=== PATIENT | female | born 1970 | race Two or more races ===

== ENCOUNTER 2018-05-01 18:25 | Inpatient (IN) | payer OTHER ==
[~2018-05-01] VITALS: Ht 152.4 cm; Wt 62.8 kg
[2018-05-01] MEDS ORDERED: SODIUM CHLORIDE 0.9% 1,000ML IVBOLUS ONE (19:30)
[2018-05-01] MEDS ORDERED: NICOTINE 21 MG/24 HR PATCH.TD24 TD ONE (19:30)
[2018-05-01 19:35] LABS: BASOPHILS # (AUTO) 0.05 x10^3/uL (0-0.1); BASOPHILS % (AUTO) 1 % (0-1); EOSINOPHILS # (AUTO) 0.34 x10^3/uL (0-0.4); EOSINOPHILS % (AUTO) 3 % (1-7); LYMPHOCYTES # (AUTO) 3.76 x10^3/uL (1-3.4); LYMPHOCYTES % (AUTO) 38 % (22-44); MD NO; MEAN CORPUSCULAR HEMOGLOBIN 30.3 pg (27.0-34.8); MEAN CORPUSCULAR HGB CONC 33.4 g/dL (32.4-35.8); MEAN CORPUSCULAR VOLUME 90.7 fL (80-100); MONOCYTES # (AUTO) 0.86 x10^3/uL (0.2-0.8); MONOCYTES % (AUTO) 9 % (2-9); NEUTROPHILS # (AUTO) 4.93 x10^3/uL (1.8-6.8); NEUTROPHILS % (AUTO) 50 % (42-75); PLATELET COUNT 257 x10^3/uL (130-400); RED BLOOD COUNT 4.95 x10^6/uL (3.82-5.3); RED CELL DISTRIBUTION WIDTH 14.1 % (9.6-15.2)
[2018-05-01 19:44] LABS: ALANINE AMINOTRANSFERASE 23 U/L (12-78); ALBUMIN 3.7 g/dL (3.4-5.0); ANION GAP 3 mmol/L (5-15); CALCIUM 8.5 mg/dL (8.5-10.1); CHLORIDE 110 mmol/L (98-107); CREATININE 0.77 mg/dL (0.55-1.02); SALICYLATE LEVEL 2.5 mg/dL (2.8-20.0)
[2018-05-01 19:49] LABS: ALKALINE PHOSPHATASE 86 U/L (45-117); BILIRUBIN,TOTAL 0.3 mg/dL (0.2-1.0); TOTAL PROTEIN 7.5 g/dL (6.4-8.2)
[2018-05-01 19:54] LABS: ACETAMINOPHEN < 2 mcg/mL (10-30)
[2018-05-01 20:21] LABS: ACETONE, SERUM Negative (Negative)
[2018-05-01 20:28] LABS: AMPHETAMINE SCREEN, URINE Negative (Negative); BARBITURATE SCREEN, URINE Negative (Negative); BENZODIAZEPINE SCREEN, URINE Negative (Negative); CANNABINOID SCREEN, URINE Negative (Negative); COCAINE SCREEN, URINE Negative (Negative); METHADONE SCREEN, URINE Negative (Negative); OPIATE SCREEN, URINE Negative (Negative)
[2018-05-01 23:43] LABS: ALANINE AMINOTRANSFERASE 26 U/L (12-78); ALBUMIN 3.3 g/dL (3.4-5.0); ANION GAP 6 mmol/L (5-15); CALCIUM 8.1 mg/dL (8.5-10.1); CHLORIDE 114 mmol/L (98-107); CREATININE 0.95 mg/dL (0.55-1.02)
[2018-05-01 23:45] LABS: ALKALINE PHOSPHATASE 86 U/L (45-117); BILIRUBIN,TOTAL 0.3 mg/dL (0.2-1.0); TOTAL PROTEIN 6.9 g/dL (6.4-8.2)
[2018-05-02] MEDS ORDERED: LORazepam 2 MG/ML, 1ML IVPush PRN (02:00)
[2018-05-02] MEDS: SODIUM CHLORIDE 0.9% 1,000 ML IV SCH ×3 (02:27→21:33)
[2018-05-02 03:03] LABS: ANION GAP 5 mmol/L (5-15); CALCIUM 7.8 mg/dL (8.5-10.1); CHLORIDE 116 mmol/L (98-107); CREATININE 0.95 mg/dL (0.55-1.02)
[2018-05-02 06:22] LABS: ANION GAP 4 mmol/L (5-15); CALCIUM 8.1 mg/dL (8.5-10.1); CHLORIDE 114 mmol/L (98-107); CREATININE 0.65 mg/dL (0.55-1.02)
[2018-05-02 08:21] VITALS: BP 123/74
[2018-05-02 11:24] LABS: ANION GAP 11 mmol/L (5-15); CALCIUM 8.3 mg/dL (8.5-10.1); CHLORIDE 108 mmol/L (98-107)
[2018-05-02 11:25] LABS: CREATININE 0.73 mg/dL (0.55-1.02)
[2018-05-02] MEDS ORDERED: MULT-725 PO (13:19)
[2018-05-02] MEDS ORDERED: MULT-658 PO (13:19)
[2018-05-02] MEDS ORDERED: SERT25TA PO (13:19)
[2018-05-02 14:41] LABS: ANION GAP 4 mmol/L (5-15); CHLORIDE 114 mmol/L (98-107); CREATININE 0.95 mg/dL (0.55-1.02)
[2018-05-02 16:22] VITALS: BP 91/55
[2018-05-02 19:55] VITALS: BP 85/59
[2018-05-02] MEDS ORDERED: LORazepam 1MG TABLET PO PRN (20:00)
[2018-05-02] MEDS ORDERED: FLUOXETINE HCL 20 MG CAPSULE PO SCH (20:00)
[2018-05-02] MEDS ORDERED: OLANZAPINE 2.5 MG TABLET PO SCH (20:00)
[2018-05-02] MEDS ORDERED: OLANZAPINE 5 MG TABLET ONE (22:20)
[2018-05-02] MEDS: LORazepam 2 MG/ML, 1ML IV PRN (22:33)
[2018-05-03 01:15] VITALS: BP 98/56
[2018-05-03] MEDS: LORazepam 2 MG/ML, 1ML IV PRN ×3 (07:26→20:02)
[2018-05-03 07:30] VITALS: BP 95/63
[2018-05-03 14:00] VITALS: BP 100/63
[2018-05-03] MEDS ORDERED: ACETAMINOPHEN 325 MG TABLET PO PRN (16:30)
[2018-05-03] MEDS ORDERED: FLUOXETINE HCL 20 MG CAPSULE PO SCH ×2 (20:00)
[2018-05-03] MEDS ORDERED: OLANZAPINE 2.5 MG TABLET PO SCH ×2 (20:00)
[2018-05-03 20:16] VITALS: BP 99/65
[2018-05-03 20:39] VITALS: BP 123/86
[2018-05-04 08:05] VITALS: BP 109/69
== END 2018-05-04 15:10 | DRG 918 ==
LOC: ED 20:47 → EDIP 05-02 00:52 → 5SO 05-02 08:39 → 2N 05-03 20:38
PROVIDERS: ADMIT Family Medicine; ATTEND Internal Medicine
DX: T51.1X2A Toxic effect of methanol, intentional self-harm, initial encounter (principal); F17.210 Nicotine dependence, cigarettes, uncomplicated; F32.9 Major depressive disorder, single episode, unspecified; F41.9 Anxiety disorder, unspecified; Z80.41 Family history of malignant neoplasm of ovary; Y92.89 Other specified places as the place of occurrence of the external cause; Z82.3 Family history of stroke; Z90.710 Acquired absence of both cervix and uterus; Z98.51 Tubal ligation status; Z98.84 Bariatric surgery status; Z90.49 Acquired absence of other specified parts of digestive tract; Z88.6 Allergy status to analgesic agent
CPT/HCPCS: 36415; 80048; 80053; 80307; 80329; 82010; 82140; 83930; 84600; 84703; 85025; 93005; 96360; 96361; G0378; G0480; J2060; J7030